=== PATIENT | female | born 1995 | race Caucasian/White ===

== ENCOUNTER 2018-04-27 03:16 | Emergency (ER) | payer SELFPAY ==
[2018-04-27 03:17] VITALS: BP 123/97
--- NOTE | 2018-04-27 03:20 | ER Report ---
History and Physical Time Seen By MD: 03:17 HPI/ROS CHIEF COMPLAINT: Retirement clearance HISTORY OF PRESENT ILLNESS: 23-year-old female brought in by police, obviously intoxicated for nursing home clearance. Patient voices no complaints. She is crying and upset. She was found passed out outside of her apartment. She voices no complaints or injuries. She denies significant past medical history. REVIEW OF SYSTEMS: Respiratory: No cough, no dyspnea. Cardiovascular: No chest pain, no palpitations. Gastrointestinal: No vomiting, no abdominal pain. Musculoskeletal: No back pain. Allergies: Coded Allergies: No Known Drug Allergies (Unverified , 04/27/18) Reviewed Nurses Notes: Yes Old Medical Records Reviewed: Yes Constitutional Vital Sign - Last 24 Hours 04/27/18 03:17 Temp 98.0 Pulse 142 Resp 17 B/P (MAP) 123/97 Pulse Ox 97 O2 Delivery Room Air Physical Exam General Appearance: The patient is alert, has no immediate need for airway protection and no current signs of toxicity. Vital signs stable, afebrile, pulse ox normal, moderate tachycardia, palpation of the head and neck reveals no tenderness or trauma HEENT: Pupils equal and round no injection. TMs normal, oropharynx without dental trauma Respiratory: Chest is non tender, lungs are clear to auscultation. No chest wall tenderness Cardiac: regular rate and rhythm Gastrointestinal: Abdomen is soft and non tender, no masses, bowel sounds normal. Musculoskeletal: Neck: Neck is supple and non tender. Extremities have full range of motion and are non tender. Skin: No rashes or lesions. DIFFERENTIAL DIAGNOSIS: After history and physical exam differential diagnosis was considered for alcohol intoxication, nursing home clearance, polysubstance abuse Medical Decision Making ED Course/Re-evaluation ED Course Patient was admitted to an examination room. H&P was done. The differential diagnosis was considered. On clinical examination. Patient has no findings on clinical examination. She appears grossly alcohol intoxicated. She voices no complaints. She is medical cleared for nursing home admission. Decision to Disposition Date: Apr 27, 2018 Decision to Disposition Time: 03:21 Depart Departure Latest Vital Signs Vital Signs Date Time Temp Pulse Resp B/P (MAP) Pulse Ox O2 Delivery O2 Flow Rate FiO2 04/27/18 03:17 98.0 142 17 123/97 97 Room Air Impression: Primary Impression: Alcohol intoxication Additional Impression: Medical clearance for incarceration Condition: Improved Disposition: [facility] TO SHELTER/CORRECTIONAL F Patient Instructions: Alcohol Intoxication (ED) Additional Instructions: Medical cleared for nursing home admission Problem Qualifiers URI BOYER DO Apr 27, 2018 03:20
== END 2018-04-27 03:29 ==
LOC: ER 03:28
DX: F10.920 Alcohol use, unspecified with intoxication, uncomplicated (principal)
CPT/HCPCS: 99281